=== PATIENT | female | born 1960 | race African-American/Black ===

== ENCOUNTER 2017-03-01 14:41 | Emergency (ER) | payer BC ==
[~2017-03-01 14:41] MED LIST: ASAB PO; CAT1 PO; LORT7 PO; LORTAB10 PO; NORV10 PO; PRIN10 PO; PRIN20 PO; [UNRECOGNIZED DRUG - OTHER] PO; [UNRECOGNIZED DRUG - REMARK]
== END 2017-03-01 14:55 | disposition home or self-care (01) ==
LOC: ER 14:41
DX: G43.909 Migraine, unspecified, not intractable, without status migrainosus (principal); I10 Essential (primary) hypertension; J45.909 Unspecified asthma, uncomplicated; J44.9 Chronic obstructive pulmonary disease, unspecified; K21.9 Gastro-esophageal reflux disease without esophagitis; F17.200 Nicotine dependence, unspecified, uncomplicated; Z88.6 Allergy status to analgesic agent; Z88.5 Allergy status to narcotic agent; Z88.1 Allergy status to other antibiotic agents; Z79.82 Long term (current) use of aspirin
CPT/HCPCS: 96374; 99283; J1200; J2550; J2930

== ENCOUNTER 2017-04-18 16:00 | Emergency (ER) | payer BC | END 2017-04-18 16:03 | disposition home or self-care (01) | LOC: ER 16:00 | DX: G43.909 Migraine, unspecified, not intractable, without status migrainosus (principal); J45.909 Unspecified asthma, uncomplicated; J44.9 Chronic obstructive pulmonary disease, unspecified; I10 Essential (primary) hypertension; Z88.5 Allergy status to narcotic agent; F17.200 Nicotine dependence, unspecified, uncomplicated; Z88.6 Allergy status to analgesic agent; Z88.8 Allergy status to other drugs, medicaments and biological substances; Z79.82 Long term (current) use of aspirin; Z79.891 Long term (current) use of opiate analgesic; Z79.899 Other long term (current) drug therapy | CPT/HCPCS: 96372; 99283; J1200; J2550; J2930 ==